=== PATIENT | female | born 1985 | race American Indian/Alaskan Native ===

== ENCOUNTER 2020-05-16 09:10 | Emergency (ER) | payer BC ==
[2020-05-16 09:18] VITALS: BP 126/96
--- NOTE | 2020-05-16 11:16 | XRay Report ---
CHEST 2 VIEWS INDICATION: sob. COMPARISON: None. FINDINGS: Support devices: None. Heart: Within normal limits. Lungs/Pleura: No acute air space or interstitial disease. No significant pleural effusion. IMPRESSION: No acute findings. Signer Name: Jermani Rogers MD Signed: 05/16/2020 11:12 AM Workstation Name: [id number]
--- NOTE | 2020-05-16 11:38 | Emergency Department Report ---
Minor Respiratory - HPI Chief Complaint: Upper Respiratory Infection Stated Complaint: SOB/COUGH/CHILLS/FEVERS/HEADACHES/WEAKNESS Time Seen by Provider: 05/16/20 11:27 Minor Respiratory: Yes Able to Tolerate Fluids, Yes Cough, Yes Shortness of Br eath, No Rhinorrhea, No Sore Throat, No Ear Pain, No Sick Contacts, No Hemoptysis, No Chest Pain, No Fever Other History: This is a 34-year-old female with a history of asthma presents the ED complaining shortness of breath, fever and coughing the past 4 days. Patient states she used her daughters inhaler with no relief. Patient denies any recent sick contact. ED Review of Systems ROS: Stated complaint: SOB/COUGH/CHILLS/FEVERS/HEADACHES/WEAKNESS Other details as noted in HPI Comment: All other systems reviewed and negative ED Past Medical Hx - Past Medical History Previous Medical History?: No - Surgical History Past Surgical History?: No - Medications Home Medications: Home Medications Medication Instructions Recorded Confirmed Last Taken Type Azithromycin [Zithromax] 250 mg PO DAILY #6 tablet 05/16/20 Unknown Rx Benzonatate [Tessalon Perles] 100 mg PO Q8HR #30 capsule 05/16/20 Unknown Rx Fluticasone (Nf) [Flovent Hfa(Nf)] 2 puff IH BID #1 pump 05/16/20 Unknown Rx predniSONE [Deltasone] 20 mg PO QDAY #5 tab 05/16/20 Unknown Rx Minor Respiratory Exam - Exam General: Vital signs noted. No distress. Alert and acting appropriately. HEENT: Yes Moist Mucous Membranes, No Pharyngeal Erythema, No Pharyngeal Exudates, No Rhinorrhea, No Conjuctival Injection, No Frontal Tenderness, No Maxillary Tenderness Ear: Neither TM Bulge, Neither TM Erythema, Neither EAC Pain, Neither EAC Discharge Neck: Yes Supple, No Adenopathy Lungs: Yes Good Air Exchange, No Wheezes (None heard bilaterally), No Ronchi, No Stridor, No Cough, No Labored Respirations, No Retractions, No Use of Accessory Muscles (No use of accessory muscles, no chest wall tenderness), No Other Abnormal Lung Sounds Heart: Yes Regular, No Murmur Abdomen: Yes Normal Bowel Sounds, No Tenderness, No Peritoneal Signs Skin: No Rash, No Edema Neurologic: Alert and oriented, no deficits. Musculoskeletal: Unremarkable. ED Course Vital Signs 05/16/20 09:15 Temperature 98.7 F Pulse Rate 87 Respiratory 20 Rate Blood Pressure 126/96 O2 Sat by Pulse 99 Oximetry ED Medical Decision Making - Radiology Data Radiology results: report reviewed, image reviewed Fluoro Time In Minutes: CHEST 2 VIEWS INDICATION: sob. COMPARISON: None. FINDINGS: Support devices: None. Heart: Within normal limits. Lungs/Pleura: No acute air space or interstitial disease. No significant pleural effusion. IMPRESSION: No acute findings. Signer Name: Jermain Rogers MD Signed: 05/16/2020 11:12 AM Workstation Name: [id number] Transcribed By: JASMINA Dictated By: Jermain Rogers MD Electronically Authenticated By: Jermain Rogers MD Signed Date/Time: 05/16/20 1112 - Medical Decision Making 34-year-old female presents with upper respiratory symptoms/asthma exacerbation Chest x-ray in the ED shows no acute findings. Discussed with patient symptomatic relief with [id number] medications. Discussed with patient COVID-19 testing is appropriate and mandatory and should be done as soon as possible. Discussed with patient for 14-day quarantine if test is positive. Discussed worsening of symptoms patient should return to ED immediately. Patient oxygen saturation stayed at 99% on room air during exertion and after exertion. Discussed continue Tylenol as needed for fever and pain. Discussed increase fluids and diet intake. Discussed rest much needed. Discussed daily vitamin C for immune booster. Discussed follow-up with prim care physician in 3-5 days. Patient verbally states she understands and will comply the following instructions and follow-up Vital signs stable. Patient is in no acute distress Critical care attestation.: If time is entered above; I have spent that time in minutes in the direct care of this critically ill patient, excluding procedure time. ED Disposition Clinical Impression: Asthma, Bronchitis Disposition: DC-01 TO HOME OR SELFCARE Is pt being admited?: No Does the pt Need Aspirin: No Condition: Stable Instructions: Asthma (ED), Chronic Bronchitis (ED), Acute Bronchitis (ED) Additional Instructions: Make sure to follow up with the primary care physician as discussed. Take all your medications as you've been prescribed. If you have any worsening symptoms or develop new symptoms please return to ED immediately. Prescriptions: predniSONE [Deltasone] 20 mg PO QDAY #5 tab Fluticasone (Nf) [Flovent Hfa(Nf)] 2 puff IH BID #1 pump Benzonatate [Tessalon Perles] 100 mg PO Q8HR #30 capsule Azithromycin [Zithromax] 250 mg PO DAILY #6 tablet Referrals: SUSIE JACKSON MD [Primary Care Provider] - 3-5 Days [facility] [Outside] - 3-5 Days [facility] [Outside] - 3-5 Days Forms: Work/School Release Form(ED) Time of Disposition: 12:12
[2020-05-16] MEDS ORDERED: dexAMETHasone 20 MG/5 ML VIAL IM ONE (11:39)
[2020-05-16] MEDS ORDERED: guaiFENesin 100 MG/5 ML ORAL LIQD PO ONE (11:39)
== END 2020-05-16 12:35 | disposition home or self-care (01) ==
LOC: ED 09:10
DX: J45.909 Unspecified asthma, uncomplicated (principal); Z79.899 Other long term (current) drug therapy
CPT/HCPCS: 71046; 96372; 99283; J1100

== ENCOUNTER 2021-08-16 15:11 | Outpatient (CLI) | payer BC ==
[2021-08-16 15:58] LABS: Blood Urea Nitrogen 5 mg/dL (7-17); Calcium 9.1 mg/dL (8.4-10.2); Hemolysis Index 8
[2021-08-16 16:13] LABS: BUN/Creatinine Ratio 8
== END 2021-08-16 15:12 | disposition home or self-care (01) ==
LOC: LAB 15:11
PROVIDERS: ATTEND Internal Medicine Nephrology
DX: R94.4 Abnormal results of kidney function studies (principal)
CPT/HCPCS: 36415; 80048